=== PATIENT | male | born 1930 | race Caucasian/White ===

== ENCOUNTER → 2017-05-05 | Outpatient (CLI) | payer MEDICARE, OTHER ==
[~2017-05-05] MED LIST: ASPIRIN81 MG; ATORVASTATIN CA10 MG PO; CENTRAL-VITE H1 EACH; CO Q-10200 MG; COQ-10100 MG PO; CRESTOR10 MG; FISH OIL 1,2001 EAC2; FISH OIL 1,2001 EACH PO; MULTI-VITAMIN1 EACH PO; PENICILLIN PO; VITAMIN C500 M1 PO; VITAMIN D32000 UNIT PO
--- NOTE | 2017-05-05 14:36 | Diagnostic Imaging Report ---
PROCEDURE:X-RAY ABDOMEN - KUB COMPARISON:None. INDICATIONS:KIDNEY STONES FINDINGS: No dilated loops of bowel or abnormal air-fluid levels patterns. No free air underneath the diaphragm. 3 mm calcification projected over the upper pole of the left kidney. Five non-rib bearing lumbar type vertebral bodies identified. Partially visualized tubing from a [employer] shunt has its tip in the left hemiabdomen. A generator device from an [employer] device is projected over the right hemipelvis. The right femur is fixed with a partially visualized medullary damion and screw device. There is a 1.9 cm stone in the gallbladder. There are numerous surgical clips in the pelvis. CONCLUSION: 1. Nonobstructive bowel gas pattern. 2. Possible 3 mm calcification projected over the upper pole the left kidney. Dictated by: Brain Finch M.D. on 05/05/2017 at 14:35 Electronically approved by: Brain Finch M.D. on 05/05/2017 at 14:35
== END ==
LOC: RAD 13:43
PROVIDERS: ATTEND Urology
DX: N20.0 Calculus of kidney (principal)
CPT/HCPCS: 74018

== ENCOUNTER → 2017-10-28 | Outpatient (CLI) | payer MEDICARE, OTHER ==
--- NOTE | 2017-10-28 11:18 | Diagnostic Imaging Report ---
PROCEDURE:X-RAY ABDOMEN - KUB COMPARISON:KUB 05/05/17. INDICATIONS:CALCULUS OF KIDNEY FINDINGS: Stomach gas obscures visualization of the left kidney. A 2 mm and a 3 mm calcification projects over the left upper pole kidney. No additional calcifications are noted overlying the urinary system. Cholelithiasis is present. Non-obstructive bowel gas pattern. A TALENT MANAGEMENT SPECIALIST shunt is partially visualized with its tip in the left terry abdomen. A stimulator device projects over the right hemipelvis. Partially seen findings of right hip arthroplasty. Numerous surgical clips are present in the pelvis. CONCLUSION: Possible 2 mm and 3 mm left sided renal stones. Dictated by: CASEY VEGA M.D. on 10/28/2017 at 11:23 Electronically approved by: CASEY VEGA M.D. on 10/28/2017 at 11:23
== END ==
LOC: RAD 09:33
PROVIDERS: ATTEND Urology
DX: N20.0 Calculus of kidney (principal)
CPT/HCPCS: 74018

== ENCOUNTER → 2018-06-12 | Outpatient (CLI) | payer MEDICARE, OTHER ==
--- NOTE | 2018-06-12 10:43 | Diagnostic Imaging Report ---
Exam: KUB-2 views Clinical History: Renal calculus. Comparison: None. Findings: Bowel gas partially obscures visualization of the right kidney. There is a 3 mm calcification overlying the left upper kidney. There is a 1.8 cm calcification and adjacent smaller calcification in the right upper quadrant. No evidence of calcification overlying the expected course of the ureters. Nonobstructive bowel gas pattern. 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 There is a right-sided stimulator device overlying the sacrum. Partially seen right proximal femoral fixation hardware. 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 Clips project over the pelvis bilaterally. Impression: A 3 mm left sided renal stone. A 1.8 cm cm right upper quadrant calcification may represent a gallstone. Signed by: Dr. Zaire Prince MD on 06/12/2018 10:40 AM
== END ==
LOC: RAD 09:48
PROVIDERS: ATTEND Urology
DX: N20.0 Calculus of kidney (principal)
CPT/HCPCS: 74018

== ENCOUNTER → 2018-07-10 | Outpatient (CLI) | payer MEDICARE, OTHER ==
--- NOTE | 2018-07-10 09:31 | Diagnostic Imaging Report ---
EXAM: CHEST 2 VIEWS, PA and lateral DATE: 07/10/2018 Time stamp on exam: 8:51 AM INDICATION: Cough COMPARISON: None FINDINGS: LINES/TUBES: There is a LOT PORTER shunt line overlying the right hemithorax and upper abdomen. Coronary artery stents are noted. LUNGS: No consolidations or edema. PLEURA: No effusions or pneumothorax. HEART AND MEDIASTINUM: Normal size and contour. BONES AND SOFT TISSUES: No acute findings. IMPRESSION: No acute thoracic abnormality. Signed by: Dr. Jabier Rahman DO on 07/10/2018 9:28 AM
== END ==
LOC: RAD 08:24
PROVIDERS: ATTEND Internal Medicine
DX: R05 Cough (principal)
CPT/HCPCS: 71046